=== PATIENT | female | born 1985 | race Caucasian/White ===

== ENCOUNTER 2016-05-22 03:15 | Emergency (ER) | payer MEDICAID, OTHER ==
[~2016-05-22] VITALS: Ht 160 cm; Wt 77.4 kg
[~2016-05-22 03:15] MED LIST: PREN1TAB79 PO
[2016-05-22 03:22] VITALS: Ht 160 cm; Wt 77.4 kg
--- NOTE | 2016-05-22 04:57 | RADRPT ---
PROCEDURE: CT Brain without contrast. CLINICAL INDICATION: Headache TECHNIQUE: Axial images from the skull base through the vertex without IV contrast. Multiplanar r eformatted images were made. Images were reviewed on a PACS workstation. The CTDIvol is 39.64 mGy and the DLP is 634.23 mGycm. One or more of the following dose reduction techniques were used: auto mated exposure control, adjustment of the mA and/or kV according to patient size, or use of iterativ e reconstruction technique. COMPARISON: None. FINDINGS: The ventricles and cisterns are normal for age. There is no evidence for territorial infarction or intracranial hemorrhage. No mass or midline shift is seen. No extra-axial fluid collection is seen . there is mild mucoperiosteal thickening of the ethmoids. IMPRESSION: No definite acute intracranial abnormality. RPTAT: [facility] Physician Winter Date Time Electronically viewed and signed by Physician Winter on 05/22/2016 04:57 DANAE/
[2016-05-22] MEDS ORDERED: ACETAMINOPHEN 325 MG TAB PO ONE (05:00)
--- NOTE | 2016-05-22 05:00 | RADRPT ---
PROCEDURE: CT facial bones CLINICAL INDICATION: Nasal and facial pain TECHNIQUE: Thin section spiral CT images through the facial bones without contrast. Multiplanar re constructions. The CTDIvol is 29.37 mGy and the DLP is 43.65 mGy-cm. One or more of the following dose reduction techniques were used: automated exposure control, adjustment of the mA and/or kV acco rding to patient size, or use of iterative reconstruction technique. COMPARISON: None. FINDINGS: No fracture or dislocation is seen. The globes appear symmetric and intact. There is minimal muco periosteal thickening of the maxillary and ethmoid sinuses. There is slight obscuration of the left ostiomeatal unit. The left middle and inferior turbinates appear slightly edematous. The epiglott is and visualized prevertebral soft tissues are unremarkable. The temporomandibular joints are unre markable. Dental hardware is seen and no definite abnormality of dentition is otherwise seen. IMPRESSION: Mild mucoperiosteal thickening of the maxillary and ethmoid sinuses with partial obscuration of the left ostiomeatal unit and mildly edematous left middle and inferior turbinates. Otherwise unremarka ble study. RPTAT: [facility] Physician Winter Date Time Electronically viewed and signed by Physician Winter on 05/22/2016 05:00 LE/
[2016-05-22 05:19] VITALS: BP 107/70; PULSE 89; RESP 16
--- NOTE | 2016-05-22 06:14 | ERD ---
ER Documentation Chief Complaint Date/Time DATE: 05/22/16 TIME: 06:13 Chief Complaint sp fall from bed, nosebleeding-controlled in triage HPI Patient is a 30 year old female here with who presents to the ED with epistaxis, headache, dizziness, blurry vision and face pain after stated she hit her nose on the edge of a wooden bed 2 hours ago. She states that her nose was bleeding for 30 minutes, however the bleeding was contained. She denies abdominal pain, nausea, vomiting or diarrhea. Denies fever or chills. ROS All systems reviewed and are negative except as per history of present illness. Medications Home Meds Reported Medications Vit W-Ca,Fe,FA(<1 mg) ( Vitamins) 1 Each Tablet, 1 EACH PO, TAB 12/31/15 Allergies Allergies: Coded Allergies: No Known Allergy (Unverified , 01/04/16) PMhx/Soc Medical and Surgical Hx: pt denies Medical Hx, pt denies Surgical Hx History of Surgery: No Anesthesia Reaction: No Hx Neurological Disorder: No Hx Respiratory Disorders: No Hx Cardiac Disorders: No Hx Psychiatric Problems: No Hx Miscellaneous Medical Probl: No Hx Alcohol Use: Yes (occasionally) Hx Substance Use: No Hx Tobacco Use: Yes Smoking Status: Current every day smoker FmHx Family History: No coronary disease, No diabetes, No other Physical Exam Vitals Vital Signs Date Time Temp Pulse Resp B/P Pulse Ox O2 Delivery O2 Flow Rate FiO2 05/22/16 05:19 89 16 107/70 99 Room Air 05/22/16 03:22 98.2 98 20 125/82 100 Physical Exam GENERAL: Well-developed, well-nourished female. Appears in mild distress. HEAD: Normocephalic, atraumatic. EYES: Pupils are equally reactive bilaterally. EOMs grossly intact. No conjunctival erythema. no batttle wound signs. no hemotympanum. ENT: Moist mucous membranes. No uvula deviation. No kissing tonsils. No exudates. no septal hematoma. no active bleeding. no defomrities or stepoffs of nose. NECK: Supple. No lymphadenopathy or thyromegaly. No meningismus. negative kernig. negative brudinski. LUNG: Clear to auscultation bilaterally. No rhonchi, wheezing, rales or coarse breath sounds. HEART: Regular rate and rhythm. No murmurs, rubs or gallops. Extremities: Equal pulses bilaterally. No peripheral clubbing, cyanosis or edema. No unilateral leg swelling. NEUROLOGIC: Alert and oriented. Moving all four extremities. 5/5 strength in all extremities. Normal speech. Steady gait. CN 2-12 intact. SKIN: Normal color. Warm and dry. No rashes or lesions. Capillary refill < 2 seconds Results 24 hrs Current Medications Medications (Trade) Dose Ordered Sig/Rashaad Route PRN Reason Start Time Stop Time Status Last Admin Dose Admin Acetaminophen (Tylenol Tab) 650 mg ONCE ONCE PO 05/22/16 05:00 05/22/16 05:01 DC 05/22/16 04:42 Procedures/MDM ER COURSE: I kept the patient and/or family informed of laboratory and diagnostic imaging results throughout the emergency room course. EKG, MONITORS, & DIAGNOSTIC IMAGING: [place] [id number] Radiology Main Line: [phone] DIAGNOSTIC IMAGING REPORT Patient: KRYSTIN KAPLAN : 1985 Age: 30 Sex: F MR #: [id number] DOS: 05/22/16 0432 Ordering MD: ANT PARKINSON PA-C Location: [facility] Room/Bed: PROCEDURE: CT Brain without contrast. CLINICAL INDICATION: Headache TECHNIQUE: Axial images from the skull base through the vertex without IV contrast. Multiplanar reformatted images were made. Images were reviewed on a PACS workstation. The CTDIvol is 39.64 mGy and the DLP is 634.23 mGycm. One or more of the following dose reduction techniques were used: automated exposure control, adjustment of the mA and/or kV according to patient size, or use of iterative reconstruction technique. COMPARISON: None. FINDINGS: The ventricles and cisterns are normal for age. There is no evidence for territorial infarction or intracranial hemorrhage. No mass or midline shift is seen. No extra-axial fluid collection is seen. there is mild mucoperiosteal thickening of the ethmoids. IMPRESSION: No definite acute intracranial abnormality. RPTAT: [facility] Saray Steiner Physician Date Time Electronically viewed and signed by Saray Steiner Physician on 05/22/2016 04 :57 LE/ CC: ANT PARKINSON PA-C MEDICAL DECISION MAKING: This is a 30 year old female who presents with epistaxis, headache, dizziness. Vital signs were reviewed. Patient is afebrile. Patient is not hypoxic. Since patient was comlpaining of blurry vision, headache, dizziness after her injury, Dr. Martinez was consulted who came to examine patient at bedside. CT brain and CT maxillofacial was ordered. CT as read by radiologist were both unremarkarkable. Low suspicion for intracranial hemorrhage, meningitis, intracranial mass, concussion, temporal arteritis, stroke, elevated intracranial pressure, seizure. Patient does not show signs of septal hematoma. Low suspicion for dislocation, fracture, septic joint, compartment syndrome, osteomyelitis, cellulitis, avascular necrosis, neurological injury, vascular injury, tendon laceration. DISCHARGE: At this time, patient is stable for discharge and outpatient management with no new complaints during the ER course. Patient was sent home with copies of results. Patient will be discharged home with instructions to recheck for new or worsening symptoms such as fever, nausea, weakness, LOC and to follow up with primary care in the next 1-2 days. Patient was advised to return to the ER for any new or worsening symptoms. Plan was discussed and patient and/or family understands and agrees. Home instructions were given. Departure Diagnosis: Primary Impression: Epistaxis Additional Impression: Nasal pain Condition: Stable Patient Instructions: Epistaxis (Adult) Additional Instructions: Llame al doctor MAANA y franki sarah ENRIKE PARA DENTRO DE 1-2 MOTT.Dgale a la secretaria que nosotros le instruimos hacer esta enrike.Avise o llame si cat condicin se empeora antes de la enrike. Regresa aqui si peor o no mejor. ANT PARKINSON PA-C May 22, 2016 06:14
== END 2016-05-22 05:20 | disposition home or self-care (01) ==
LOC: FTE 03:15
DX: S09.92XA Unspecified injury of nose, initial encounter (principal); R04.0 Epistaxis; R51 Headache; F17.210 Nicotine dependence, cigarettes, uncomplicated; W22.8XXA Striking against or struck by other objects, initial encounter; Y92.9 Unspecified place or not applicable
CPT/HCPCS: 70450; 70486; Z7502; Z7610

== ENCOUNTER 2017-05-15 03:12 | Inpatient (IN) | END 2017-05-17 17:20 | disposition home or self-care (01) | DRG 854 ==

== ENCOUNTER 2017-05-27 11:12 | Outpatient (CLI) | END 2017-05-27 15:52 | disposition home or self-care (01) ==

== ENCOUNTER 2018-08-13 17:36 | Emergency (ER) | payer SELFPAY ==
[~2018-08-13] VITALS: Wt 84.0 kg
[~2018-08-13 17:36] MED LIST changes: +DOCU-144 PO; -PREN1TAB79 PO
--- NOTE | 2018-08-13 21:11 | ERD ---
ER Documentation Chief Complaint Chief Complaint POSTERIOR HEADACHE, CHEST PAIN X THIS AM. ROS All systems reviewed and are negative except as per history of present illness. Medications Home Meds Active Scripts Docusate Sodium* (Colace*) 100 Mg Capsule, 100 MG PO BID, #20 CAP Prov:RODRIGO MILIAN EMAIL MARKETER 05/17/17 Allergies Allergies: Coded Allergies: No Known Allergy (Unverified , 05/15/17) PMhx/Soc Anesthesia Reaction: No Hx Neurological Disorder: No Hx Respiratory Disorders: No Hx Cardiac Disorders: No Hx Psychiatric Problems: No Hx Miscellaneous Medical Probl: No Hx Alcohol Use: No Hx Substance Use: No Hx Tobacco Use: No Smoking Status: Never smoker Physical Exam Vitals Vital Signs Date Temp Pulse Resp B/P (MAP) Pulse Ox O2 O2 Flow FiO2 Time Delivery Rate 08/13/18 98.1 100 20 120/69 100 17:40 (86) Physical Exam Const: No acute distress Head: Atraumatic Eyes: Normal Conjunctiva ENT: Normal External Ears, Nose and Mouth. Neck: Full range of motion. No meningismus. Resp: Clear to auscultation bilaterally Cardio: Regular rate and rhythm, no murmurs Abd: Soft, non tender, non distended. Normal bowel sounds Skin: No petechiae or rashes Back: No midline or flank tenderness Ext: No cyanosis, or edema Neur: Awake and alert Psych: Normal Mood and Affect WAGNER DAWKINS August 13, 2018 21:11
[2018-08-13] MEDS ORDERED: KETOROLAC 30 MG INJ IM STA (21:24)
[2018-08-13] MEDS ORDERED: NAPR-985 PO (21:26)
--- NOTE | 2018-08-13 21:35 | ERD ---
ER Documentation Chief Complaint Chief Complaint POSTERIOR HEADACHE, CHEST PAIN X THIS AM. HPI 32-year-old female with past medical history of anxiety disorder who presents with complaint of posterior headache, chest pain, and lower back pain. Describes a tension type headache but denies prior history of headache. Has had intermittent nausea but no episodes of vomiting. States she suffers from anxiety but has not taken any medications in the past with such symptoms. She otherwise denies chest pain, shortness of breath, dyspnea, nausea, vomiting, abdominal pain, urinary symptoms. Still eating and drinking without issue. ROS All systems reviewed and are negative except as per history of present illness. Medications Home Meds Active Scripts Naproxen* (Naprosyn*) 500 Mg Tablet, 500 MG PO BID PRN for PAIN AND/OR INFLAMMATION, #30 TAB Prov:RAMIREZ IYER PA-C 08/13/18 Docusate Sodium* (Colace*) 100 Mg Capsule, 100 MG PO BID, #20 CAP Prov:RODRIGO MILIAN ASSOCIATE FIELD SERVICE ENGINEER 05/17/17 Allergies Allergies: Coded Allergies: No Known Allergy (Unverified , 05/15/17) PMhx/Soc Anesthesia Reaction: No Hx Neurological Disorder: No Hx Respiratory Disorders: No Hx Cardiac Disorders: No Hx Psychiatric Problems: No Hx Miscellaneous Medical Probl: No Hx Alcohol Use: No Hx Substance Use: No Hx Tobacco Use: No Smoking Status: Never smoker FmHx Family History: No diabetes, No coronary disease, No other Physical Exam Vitals Vital Signs Date Temp Pulse Resp B/P (MAP) Pulse Ox O2 O2 Flow FiO2 Time Delivery Rate 08/13/18 98.1 100 20 120/69 100 17:40 (86) Physical Exam Const: No acute distress Head: Atraumatic Eyes: Normal Conjunctiva ENT: Normal External Ears, Nose and Mouth. Neck: Full range of motion. No meningismus. Resp: Clear to auscultation bilaterally Cardio: Regular rate and rhythm, no murmurs Abd: Soft, non tender, non distended. Normal bowel sounds Skin: No petechiae or rashes Back: No midline or flank tenderness Ext: No cyanosis, or edema Neur: Awake and alert Psych: Normal Mood and Affect Results 24 hrs Current Medications Medications Dose Sig/Rashaad Start Time Status Last (Trade) Ordered Route PRN Stop Time Admin Dose Reason Admin Ketorolac 30 mg ONCE STAT 08/13/18 DC Tromethamine IM 21:24 (Toradol) 08/13/18 21:25 Procedures/MDM 32-year-old female complaint of headache, back pain, chest pain. I have low suspicion for emergent process warranting further emergent care or work-up. Patient instructed to follow-up with PMD for continued care and follow-up. Strict return precautions explained in detail. ED course: EKG sinus rhythm without acute changes DISPOSITION PLAN: We discussed follow up with the patient's primary care doctor within 24 to 48 hours. Patient counseled regarding my diagnostic impression and care plan. Prior to discharge all questions answered. Pt agrees with treatment plan and understan ds strict return precautions. Precautionary instructions provided including instructions to return to the ER if not improving or for any worsening or changing symptoms or concerns. Disclaimer: Inadvertent spelling and grammatical errors are likely due to EHR/dictation software use and do not reflect on the overall quality of patient care. Also, please note that the electronic time recorded on this note does not necessarily reflect the actual time of the patient encounter. Departure Diagnosis: Primary Impression: Anxiety Additional Impression: Headache Condition: Stable Patient Instructions: Self-Care for Headaches, Anxiety Reaction Referrals: VINCE YOUSSEF (PCP) Additional Instructions: Call your primary care doctor TOMORROW for an appointment during the next 2-3 days.See the doctor sooner or return here if your condition worsens before your appointment time. RAMIREZ IYER PA-C August 13, 2018 21:35
[2018-08-13 22:11] VITALS: BP 118/71; PULSE 78; RESP 18
== END 2018-08-13 22:12 | disposition home or self-care (01) ==
LOC: FTE 17:36
DX: F41.9 Anxiety disorder, unspecified (principal)
CPT/HCPCS: 81025; 96372; 99284; J1885